=== PATIENT | female | born 2000 | race Caucasian/White ===

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

== ENCOUNTER → 2021-01-09 16:08 | Outpatient (CLI) | payer OTHER, SELFPAY ==
--- NOTE | 2021-01-09 16:15 | RAD_ITS ---
STUDY: X-RAY CHEST REASON FOR EXAM: Female, 20 years old. PLEURITIC CHEST PAIN, POSITIVE LANCE -- IRITIS OF BOTH EYES TECHNIQUE: PA and lateral views of the chest. COMPARISON: None. FINDINGS: The lungs are clear and expanded. There is no demonstrated pleural abnormality. Normal size heart. Normal mediastinum and lucero. Normal visualized pulmonary arteries. Normal visualized aortic arch and descending thoracic aorta. There is mild levoscoliosis. Normal visualized ribs, clavicles, and shoulders. There is no demonstrated abnormality of the visualized soft tissue structures of the upper abdomen. RAD/Chest PA and Lateral IMPRESSION: Normal x-ray examination of the chest. Electronically Signed: Aundrea Wolf MD at 7:33 EST Tel , Service support ,
[2021-01-09 17:14] LABS: EXAGEN MAILED SPECIMEN
[2021-01-09 18:22] LABS: Color, Urine Yellow (Yellow); Glucose, Dipstick Normal (Normal); Ketone-Dipstick Negative (Negative); Leukocyte Esterase-Dipstick 25 /ul (Negative); Nitrite-Dipstick Negative (Negative); Occult Blood-Urine 250 /ul (Negative); Protein-Dipstick 30 mg/dl (Negative); Specific Gravity, Urine 1.025 (1.002-1.030); Urine Bilirubin Dipstick Negative (Negative); Urine Clarity Sl. Cloudy (Clear); Urine Urobilinogen Normal (Normal)
[2021-01-09 18:32] LABS: Erythrocyte Sedimentation Rate 20 mm/hr (0-30)
[2021-01-09 18:36] LABS: Absolute Lymphocyte Count 1.69 X10^3/uL (0.83-4.51); Absolute Neutrophil Count 6.8 X10^3/uL (2.0-7.7); Basophil# 0.04 X10^3/uL; Basophil% 0.4 % (0-1); Eosinophil# 0.06 X10^3/uL; Eosinophils% 0.6 % (0-5); Hematocrit 39.3 % (37-47); Hemoglobin 12.6 g/dL (12.0-15.0); Lymphocyte # 1.69 X10^3/ul (4.0); Lymphocyte % 17.4 % (19-41); Mean Corp Hgb Conc 32.1 g/dL (32-36); Mean Corpuscular Hgb 29.9 pg (27.0-32.0); Mean Corpuscular Volume 93.1 fL (81-99); Monocyte# 1.02 X10^3/uL; Monocyte% 10.5 % (0-10); NRBC Flagged by Analyzer 0 % (0-5); Neutrophil # 6.84 X10^3/uL (2.7-7.7); Neutrophil % 70.4 % (47-70); Platelet Count 368 K/mm3 (150-450); RBC Distribution Width CV 12.6 % (11.6-14.6); RBC Distribution Width SD 42.9 fl (35.1-43.9); Red Blood Count 4.22 M/mm3 (4.2-5.4); White Blood Count 9.7 K/mm3 (4.4-11.0)
[2021-01-09 18:43] LABS: Protein:Creat Ratio 144 mg/g CRE (0-200)
[2021-01-09 18:45] LABS: Prothrombin Time (Protime)PT. 12.4 SECONDS (11.7-14.9)
[2021-01-09 18:46] LABS: Partial Thromboplast Time 30.7 Seconds (24.1-36.2)
[2021-01-09 18:53] LABS: ALB/GLOB Ratio 0.8 RATIO (0.9-2.4); AST(SGOT) 14 U/L (15-37); Alanine Aminotransfer ALT/SGPT 35 U/L (13-56); Albumin, Serum 3.5 g/dL (3.2-5.0); Alkaline Phosphatase 97 U/L (45-117); Anion Gap 7 (5-15); BUN 9 mg/dL (7-18); BUN/Creat Ratio 12.2 RATIO (10-20); Calcium,Total 9.2 mg/dL (8.5-10.1); Chloride 105 mmol/L (98-107); Creatinine, Serum 0.74 mg/dL (0.55-1.02); EST Glomerular Filtration Rate 108 mL/min (>60); Est Glom Filt Rate - Afr Amer 130 mL/min (>60); Globulin 4.3 g/dL (2.2-4.2); Glucose 85 mg/dL (74-106); Potassium 3.2 mmol/L (3.5-5.1); Protein, Total 7.8 g/dL (6.4-8.2); Sodium Level 140 mmol/L (136-145)
[2021-01-12 05:07] LABS: Dilute Prothrombin Time (dPT) 44.8 sec (0.0-55.0); Dilute Russell Viper Venom 40.5 sec (0.0-47.0); Hexagonal Phase Phospholipid 0 sec (0-11); PTT-LA 34.5 sec (0.0-51.9); Thrombin Time 20.4 sec (0.0-23.0); dPT Confirm Ratio 1.64 Ratio (0.00-1.40)
[2021-01-12 09:35] LABS: Thrombin Time 15.5 sec (0.0-23.0)
[2021-01-12 09:38] LABS: Interpretation Comment: (.)
== END ==
LOC: MTLAB 16:11
PROVIDERS: Referring Provider Internal Medicine Rheumatology; Visit Provider Internal Medicine Rheumatology
DX: R76.8 Other specified abnormal immunological findings in serum (principal); H20.9 Unspecified iridocyclitis; F41.9 Anxiety disorder, unspecified
CPT/HCPCS: 36415; 71046; 80053; 81002; 82570; 84156; 85025; 85598; 85610; 85652; 85670; 85730; 86140

== ENCOUNTER 2021-12-26 14:17 | Outpatient (CLI) | payer OTHER, SELFPAY | END 2021-12-26 23:59 | disposition short-term general hospital (02) | LOC: IMMUN 01-02 14:17 | PROVIDERS: Referring Provider Family Medicine; Visit Provider Family Medicine | DX: Z23 Encounter for immunization (principal) ==